=== PATIENT | male | born 1960 ===

== ENCOUNTER 2024-06-15 19:09 | Inpatient (IN) | payer OTHER ==
[2024-06-16 00:43] LABS: BASO % 0.2 % (0-2.0); HEMATOCRIT 38.9 % (35.4-49); HEMOGLOBIN 12.2 GM/dL (11.7-16.9); LYMPH % 4.6 % (8-40); MCH 26.4 pg (25.7-33.7); MCHC 31.4 g/dl (32.0-35.9); MEAN PLT VOLUME 10.6 fl (7.5-11.1); MONO % 5.6 % (3.8-10.2); NEUT % 89.6 % (42.8-82.8); PLATELET COUNT 182 10^3/uL (134-434); RBC 4.63 M/mm3 (4.00-5.60); RDW 17.7 % (11.9-15.9); WHITE BLOOD COUNT 18.5 K/mm3 (4.0-10.0)
[2024-06-16 00:51] LABS: INR 1.02 (0.83-1.09); PROTHROMBIN TIME (PATIENT) 11.7 SEC (9.7-13.0)
[2024-06-16] MEDS ORDERED: ACETAMINOPHEN INJECTION 100 ML ONE (01:00)
[2024-06-16] MEDS ORDERED: PIPERACILLIN/TAZOB 4.5 GM 4.5 GM/100 ML BAG IVPB ONE (01:01)
[2024-06-16 01:12] LABS: POTASSIUM 4.4 mmol/L (3.5-5.1)
[2024-06-16 01:13] LABS: CALCIUM 10.6 mg/dL (8.5-10.1)
[2024-06-16 01:14] LABS: ALBUMIN 4.1 g/dl (3.4-5.0); BLOOD UREA NITROGEN 38.9 mg/dL (7-18)
[2024-06-16 01:15] LABS: VENOUS BASE EXCESS 5.7 mmol/L (-2-2); VENOUS O2 SATURATION 18.8 % (70-80); VENOUS PH 7.297 (7.310-7.410)
[2024-06-16 01:17] LABS: CREATININE 0.9 mg/dL (0.55-1.3); VENOUS PCO2 72.8 mmHg (38-52)
[2024-06-16] MEDS: ACETAMINOPHEN 1000 MG/100 ML BAG IVPB ONE ×2 (01:18→09:01)
[2024-06-16 01:19] LABS: BILIRUBIN,TOTAL 0.8 mg/dL (0.2-1); TOT PROT 9.1 g/dl (6.4-8.2)
[2024-06-16] MEDS: PIPERACILLIN/TAZOB 4.5 GM 4.5 GM in DEXTROSE 5%-WATER 100 ML IVPB ONE (01:19)
[2024-06-16 01:53] LABS: LACTIC ACID 4.1 mmol/L (0.4-2.0)
[2024-06-16] MEDS: SODIUM CHLORIDE 0.9% 500 ML INFUS.BAG IV ONE (02:38)
[2024-06-16] MEDS: VANCOMYCIN HCL 1,500 MG in DEXTROSE 5%-WATER - 500 ML IVPB ONE (02:39)
[2024-06-16] MEDS: VANCOMYCIN PREMIX 1.5 GM 1,500 MG/300 ML BAG IVPB ONE (04:36)
[2024-06-16 06:12] LABS: LACTIC ACID 2.1 mmol/L (0.4-2.0)
[2024-06-16] MEDS ORDERED: ALBUTEROL SO4 2.5/IPRATROPIUM 0.5 INH SOL 3 ML VIAL.NEB. NEB PRN (06:15)
[2024-06-16 06:22] LABS: HEMATOCRIT 37.8 % (35.4-49); MCH 26.5 pg (25.7-33.7); MCHC 31.7 g/dl (32.0-35.9); MEAN CELL VOLUME 83.7 fl (80-96); MEAN PLT VOLUME 10.4 fl (7.5-11.1); PLATELET COUNT 244 10^3/uL (134-434); RBC 4.52 M/mm3 (4.00-5.60); WHITE BLOOD COUNT 20.2 K/mm3 (4.0-10.0)
[2024-06-16 06:32] LABS: POTASSIUM 3.7 mmol/L (3.5-5.1)
[2024-06-16 06:34] LABS: ALBUMIN 3.8 g/dl (3.4-5.0); MAGNESIUM 2.7 mg/dL (1.8-2.4)
[2024-06-16 06:35] LABS: BLOOD UREA NITROGEN 41.8 mg/dL (7-18)
[2024-06-16 06:37] LABS: PHOSPHOROUS 4.6 mg/dL (2.5-4.9)
[2024-06-16 06:39] LABS: TOT PROT 8.7 g/dl (6.4-8.2)
[2024-06-16] MEDS: ENOXAPARIN NA (PORCINE) 40 MG/0.4 ML DISP.SYRIN SQ SCH (09:05)
[2024-06-16] MEDS: PIPERACILLIN/TAZOB 4.5 GM 4.5 GM/100 ML BAG IVPB SCH (09:06)
[2024-06-16] MEDS: VANCOMYCIN PREMIX 1.5 GM 1,500 MG/300 ML BAG IVPB SCH (09:07)
[2024-06-16 09:37] LABS: ANISOCYTOSIS 0; HELMET CELLS 0; HOWELL-JOLLY BODIES 0; MACROCYTOSIS 0; OVALOCYTE 0; ROULEAU 0; SICKELED CELLS 0; TARGET CELLS 0; TEAR DROP CELLS 0; TOXIC GRANULATION 0
[2024-06-16] MEDS ORDERED: BUMETANIDE 0.5 MG TABLET GT SCH (10:00)
[2024-06-16] MEDS ORDERED: NALOXONE HCL 0.4 MG/ML VIAL IVPUSH PRN (10:36)
[2024-06-16] MEDS ORDERED: traMADol HCL 50 MG TABLET PEG SCH ×2 (10:45→22:00)
[2024-06-16] MEDS: FAMOTIDINE 20 MG/2.5 ML ORAL LIQUID GT SCH (12:23)
[2024-06-16] MEDS: INSULIN ASPART SLIDING SCALE (NOVOLOG) 1 VIAL SQ SCH (12:43)
[2024-06-16] MEDS: ZINC OXIDE 20% TOPICAL OINTMENT 30 GM TUBE TP SCH (16:49)
[2024-06-16] MEDS: traMADol HCL 50 MG TABLET PEG SCH (16:54)
[2024-06-16] MEDS: GLYCOPYRROLATE 1 MG TABLET GT SCH (18:19)
[2024-06-16] MEDS: SENNOSIDES 8.8 MG/5 ML SYRUP GT SCH (21:17)
[2024-06-16] MEDS: ATORVASTATIN CA 10 MG TABLET (FP) GT SCH (21:17)
[2024-06-16 22:16] LABS: PH,URINE 5.5 (5.0-8.0); URINE APPEARANCE Clear; URINE BILIRUBIN Negative (NEGATIVE); URINE COLOR Yellow; URINE GLUCOSE (UA) Negative (NEGATIVE); URINE KETONE Negative (NEGATIVE); URINE LEUK ESTERASE 3+ (NEGATIVE); URINE NITRITE Negative (NEGATIVE); URINE PROTEIN Negative (NEGATIVE); URINE UROBILINOGEN 0.2 mg/dL (0.2-1.0)
[2024-06-16 22:53] LABS: URINE RBC 14.5 /uL (0-23.9); URINE WBC 80.5 /uL (0-25.8)
[2024-06-16 22:54] LABS: EPI CELLS 53.7 /uL (0-25.1); HYALINE CASTS 5.89 /uL (0-3.1); URINE BACTERIA 2297.1 /uL (0-1359)
[2024-06-17 07:54] LABS: BASO % 0.4 % (0-2.0); EOS % 0.1 % (0-4.5); HEMATOCRIT 36.7 % (35.4-49); HEMOGLOBIN 11.7 GM/dL (11.7-16.9); MCH 26.9 pg (25.7-33.7); MCHC 31.8 g/dl (32.0-35.9); MEAN CELL VOLUME 84.5 fl (80-96); MEAN PLT VOLUME 10.5 fl (7.5-11.1); MONO % 7.2 % (3.8-10.2); NEUT % 83.3 % (42.8-82.8); PLATELET COUNT 226 10^3/uL (134-434); RBC 4.34 M/mm3 (4.00-5.60); RDW 17.9 % (11.9-15.9); WHITE BLOOD COUNT 11.6 K/mm3 (4.0-10.0)
[2024-06-17 07:56] LABS: POTASSIUM 3.4 mmol/L (3.5-5.1)
[2024-06-17 08:04] LABS: ALBUMIN 3.8 g/dl (3.4-5.0); BLOOD UREA NITROGEN 54.6 mg/dL (7-18); PHOSPHOROUS 4.2 mg/dL (2.5-4.9)
[2024-06-17 08:05] LABS: BILIRUBIN,TOTAL 0.8 mg/dL (0.2-1); CALCIUM 9.7 mg/dL (8.5-10.1); TOT PROT 8.6 g/dl (6.4-8.2)
[2024-06-17 08:07] LABS: CREATININE 1.2 mg/dL (0.55-1.3); MAGNESIUM 2.9 mg/dL (1.8-2.4)
[2024-06-17] MEDS: VANCOMYCIN HCL 1,500 MG in DEXTROSE 5%-WATER - 250 ML IVPB SCH (11:42)
[2024-06-17] MEDS: PIPERACILLIN/TAZOB 3.375 GM 50 ML IVPB SCH (13:10)
[2024-06-17] MEDS: PIPERACILLIN/TAZOB 4.5 GM 4.5 GM/100 ML BAG IVPB SCH (13:11)
[2024-06-17] MEDS: POTASSIUM CHLORIDE ORAL LIQUID 20 MEQ/15 ML PO ONE (16:49)
[2024-06-17] MEDS: LACTATED RINGERS SOLUTION 1,000 ML/1,000 ML INFUS.BAG IV SCH (16:50)
[2024-06-18 07:50] LABS: HEMATOCRIT 26.7 % (35.4-49); HEMOGLOBIN 8.3 GM/dL (11.7-16.9); MCH 26.7 pg (25.7-33.7); MCHC 31.2 g/dl (32.0-35.9); MEAN CELL VOLUME 85.8 fl (80-96); MEAN PLT VOLUME 10.6 fl (7.5-11.1); PLATELET COUNT 197 10^3/uL (134-434); RBC 3.11 M/mm3 (4.00-5.60); RDW 17.2 % (11.9-15.9); WHITE BLOOD COUNT 9.7 K/mm3 (4.0-10.0)
[2024-06-18 07:59] LABS: POTASSIUM 3.5 mmol/L (3.5-5.1)
[2024-06-18 08:01] LABS: BLOOD UREA NITROGEN 56.3 mg/dL (7-18); CALCIUM 9.2 mg/dL (8.5-10.1); MAGNESIUM 2.9 mg/dL (1.8-2.4)
[2024-06-18 08:05] LABS: PHOSPHOROUS 2.3 mg/dL (2.5-4.9)
[2024-06-18 13:56] VITALS: BMI 22.0
[2024-06-18] MEDS: PANTOPRAZOLE SODIUM 40 MG VIAL IVPUSH SCH (14:02)
[2024-06-18] MEDS: COLLAGENASE CLOSTRIDIUM HIST. 30 GRAMS TUBE TP SCH (18:19)
[2024-06-19 13:06] LABS: HEMATOCRIT 28.6 % (35.4-49); MCHC 31.5 g/dl (32.0-35.9); MEAN CELL VOLUME 85.6 fl (80-96); MEAN PLT VOLUME 9.9 fl (7.5-11.1); PLATELET COUNT 115 10^3/uL (134-434); RBC 3.34 M/mm3 (4.00-5.60); RDW 17.2 % (11.9-15.9); WHITE BLOOD COUNT 7.2 K/mm3 (4.0-10.0)
[2024-06-19 13:47] LABS: BLOOD UREA NITROGEN 25.1 mg/dL (7-18); MAGNESIUM 2.4 mg/dL (1.8-2.4)
[2024-06-19 13:50] LABS: CREATININE 0.7 mg/dL (0.55-1.3); PHOSPHOROUS 2.4 mg/dL (2.5-4.9)
[2024-06-19] MEDS ORDERED: ALBUTEROL SO4 2.5/IPRATROPIUM 0.5 INH SOL 3 ML VIAL.NEB. NEB PRN (13:52)
[2024-06-19] MEDS ORDERED: NALOXONE HCL 0.4 MG/ML VIAL IVPUSH PRN (13:52)
[2024-06-19] MEDS: GLYCOPYRROLATE 1 MG TABLET GT SCH (14:21)
[2024-06-19] MEDS ORDERED: INSULIN ASPART SLIDING SCALE (NOVOLOG) 1 VIAL SQ SCH (16:30)
[2024-06-19] MEDS: INSULIN ASPART SLIDING SCALE (NOVOLOG) 1 VIAL SQ SCH (16:58)
[2024-06-19] MEDS: MIDODRINE HCL 2.5 MG TABLET GT SCH (17:23)
[2024-06-19] MEDS: PIPERACILLIN/TAZOB 3.375 GM 50 ML IVPB SCH (17:23)
[2024-06-19] MEDS: SENNOSIDES 8.8 MG/5 ML SYRUP GT SCH (22:29)
[2024-06-19] MEDS: PANTOPRAZOLE SODIUM 40 MG VIAL IVPUSH SCH (22:29)
[2024-06-19] MEDS: FAMOTIDINE 20 MG/2.5 ML ORAL LIQUID GT SCH (22:29)
[2024-06-19] MEDS: ATORVASTATIN CA 10 MG TABLET (FP) GT SCH (22:30)
[2024-06-19] MEDS: ZINC OXIDE 20% TOPICAL OINTMENT 30 GM TUBE TP SCH (22:31)
[2024-06-20] MEDS: [UNRECOGNIZED DRUG - MIXTURE] TP SCH (08:37)
[2024-06-20 09:46] LABS: BASO % 0.5 % (0-2.0); EOS % 1.8 % (0-4.5); HEMATOCRIT 27.6 % (35.4-49); HEMOGLOBIN 8.7 GM/dL (11.7-16.9); LYMPH % 22.7 % (8-40); MCH 27.2 pg (25.7-33.7); MCHC 31.5 g/dl (32.0-35.9); MEAN CELL VOLUME 86.2 fl (80-96); MEAN PLT VOLUME 10.3 fl (7.5-11.1); MONO % 8.6 % (3.8-10.2); NEUT % 66.4 % (42.8-82.8); PLATELET COUNT 156 10^3/uL (134-434); RDW 17.3 % (11.9-15.9); WHITE BLOOD COUNT 6.9 K/mm3 (4.0-10.0)
[2024-06-20 10:00] LABS: POTASSIUM 3.5 mmol/L (3.5-5.1)
[2024-06-20] MEDS ORDERED: [UNRECOGNIZED DRUG - MIXTURE] TP SCH (10:00)
[2024-06-20] MEDS ORDERED: ENOXAPARIN NA (PORCINE) 40 MG/0.4 ML DISP.SYRIN SQ SCH (10:00)
[2024-06-20 10:07] LABS: ALBUMIN 2.8 g/dl (3.4-5.0); BLOOD UREA NITROGEN 20.1 mg/dL (7-18); CALCIUM 8.8 mg/dL (8.5-10.1); MAGNESIUM 2.3 mg/dL (1.8-2.4)
[2024-06-20 10:10] LABS: CREATININE 0.6 mg/dL (0.55-1.3); PHOSPHOROUS 1.8 mg/dL (2.5-4.9)
[2024-06-20 10:11] LABS: BILIRUBIN,TOTAL 0.3 mg/dL (0.2-1)
[2024-06-20 10:15] LABS: TOT PROT 6.4 g/dl (6.4-8.2)
[2024-06-20] MEDS: traMADol HCL 50 MG TABLET PEG SCH (10:21)
[2024-06-20] MEDS: POTASSIUM PHOSPHATE 30 MM in SODIUM CHLORIDE 500 ML IVPB ONE (18:18)
[2024-06-21 07:38] LABS: BASO % 0.5 % (0-2.0); EOS % 2.3 % (0-4.5); HEMOGLOBIN 8.7 GM/dL (11.7-16.9); LYMPH % 24.4 % (8-40); MCH 26.9 pg (25.7-33.7); MEAN CELL VOLUME 86.8 fl (80-96); MEAN PLT VOLUME 10.2 fl (7.5-11.1); MONO % 7.8 % (3.8-10.2); PLATELET COUNT 149 10^3/uL (134-434); POTASSIUM 4.3 mmol/L (3.5-5.1); RBC 3.23 M/mm3 (4.00-5.60); WHITE BLOOD COUNT 7.1 K/mm3 (4.0-10.0)
[2024-06-21 07:40] LABS: ALBUMIN 2.8 g/dl (3.4-5.0); CALCIUM 8.6 mg/dL (8.5-10.1)
[2024-06-21 07:41] LABS: BLOOD UREA NITROGEN 17.2 mg/dL (7-18); MAGNESIUM 2.3 mg/dL (1.8-2.4)
[2024-06-21 07:44] LABS: CREATININE 0.6 mg/dL (0.55-1.3); PHOSPHOROUS 2.5 mg/dL (2.5-4.9)
[2024-06-21 07:45] LABS: BILIRUBIN,TOTAL 0.2 mg/dL (0.2-1); TOT PROT 6.6 g/dl (6.4-8.2)
[2024-06-21] MEDS: ACETAMINOPHEN 1000 MG/100 ML BAG IVPB PRN (14:57)
[2024-06-22 08:41] LABS: BASO % 0.4 % (0-2.0); EOS % 2.2 % (0-4.5); HEMATOCRIT 28.1 % (35.4-49); HEMOGLOBIN 8.8 GM/dL (11.7-16.9); MCH 26.9 pg (25.7-33.7); MCHC 31.1 g/dl (32.0-35.9); MEAN CELL VOLUME 86.2 fl (80-96); MEAN PLT VOLUME 9.7 fl (7.5-11.1); MONO % 5.8 % (3.8-10.2); NEUT % 70.6 % (42.8-82.8); PLATELET COUNT 158 10^3/uL (134-434); RBC 3.26 M/mm3 (4.00-5.60); WHITE BLOOD COUNT 8.4 K/mm3 (4.0-10.0)
[2024-06-22 08:55] LABS: BLOOD UREA NITROGEN 15.7 mg/dL (7-18)
[2024-06-22 08:58] LABS: CREATININE 0.6 mg/dL (0.55-1.3)
[2024-06-22 13:04] VITALS: TEMP 98.2
[2024-06-22 14:07] VITALS: BP 107/52; PULSE 70; RESP 20
[2024-06-23] MEDS ORDERED: PANTOPRAZOLE SODIUM 40 MG VIAL IVPUSH SCH (10:00)
== END 2024-06-22 14:11 | DRG 871 ==
LOC: JER 19:09 → JERBED 06-16 00:01 → J4W 06-16 06:46 → OBSVTOIN 06-16 10:28 → J7W 06-19 13:11
PROVIDERS: ADMIT Internal Medicine; ATTEND Internal Medicine
PROC: 0D20XUZ Change Feeding Device in Upper Intestinal Tract, External Approach (ICD-10-PCS; principal; 2024-06-15)
DX: A41.89 Other specified sepsis (principal); J96.21 Acute and chronic respiratory failure with hypoxia; R53.2 Functional quadriplegia; J95.851 Ventilator associated pneumonia; K94.23 Gastrostomy malfunction; G93.1 Anoxic brain damage, not elsewhere classified; G81.90 Hemiplegia, unspecified affecting unspecified side; E87.20 Acidosis, unspecified; T85.528A Displacement of other gastrointestinal prosthetic devices, implants and grafts, initial encounter; E87.0 Hyperosmolality and hypernatremia; R33.9 Retention of urine, unspecified; D64.9 Anemia, unspecified; D72.829 Elevated white blood cell count, unspecified; I10 Essential (primary) hypertension; E11.9 Type 2 diabetes mellitus without complications; Y83.8 Other surgical procedures as the cause of abnormal reaction of the patient, or of later complication, without mention of misadventure at the time of the procedure; F20.9 Schizophrenia, unspecified; B96.5 Pseudomonas (aeruginosa) (mallei) (pseudomallei) as the cause of diseases classified elsewhere; Z86.718 Personal history of other venous thrombosis and embolism; Z93.0 Tracheostomy status; Z74.01 Bed confinement status
CPT/HCPCS: 0241U-QW; 36415; 70450-TC; 71045-TC-FY; 72125-TC; 74018-TC-FY; 80048; 80053; 81003; 82803; 82962; 83605; 83735; 84100; 84484; 85025; 85027; 85610; 85730; 87040; 87070; 87086; 87186; 87205; 87481; 93005; 93010; 99285-25; G0378; J0131